=== PATIENT | female | born 1935 | race Caucasian/White ===

== ENCOUNTER → 2017-06-03 | Outpatient (CLI) | payer MEDICARE, OTHER, SELFPAY | PROVIDERS: Family Provider Family Medicine; PCP Family Medicine; Visit Provider Family Medicine | DX: R53.1 Weakness (principal); E03.9 Hypothyroidism, unspecified; I10 Essential (primary) hypertension; E78.5 Hyperlipidemia, unspecified | CPT/HCPCS: 36415; 80053; 80061; 83036; 84443; 85025 ==

== ENCOUNTER → 2017-07-07 | Day surgery (SDC) | payer MEDICARE, OTHER, SELFPAY | END | disposition home or self-care (01) | PROVIDERS: Family Provider Family Medicine; PCP Family Medicine; Visit Provider Ophthalmology | DX: H25.12 Age-related nuclear cataract, left eye (principal) | CPT/HCPCS: 66984; J2250; J3010; V2787 ==

== ENCOUNTER → 2017-12-29 15:36 | Outpatient (CLI) | payer MEDICARE, OTHER, SELFPAY ==
--- NOTE | 2017-12-29 15:40 | DI.RAD.S_ITS ---
PROCEDURE: XR CHEST 2V INDICATIONS: short of breath TECHNIQUE: 2 views of the chest were acquired. COMPARISON: [facility], CHEST 2 VIEW, 12/02/2013, 14:13. [facility], CHEST 2 VIEW, 04/12/2010, 15:00. [facility], CHEST 2 VIEW, 08/24/2007, 10:03. FINDINGS: Surgical changes and devices: Right breast region surgical clips stable over time. Lungs and pleura: No pleural effusions or pneumothorax. Lungs are clear. Mediastinum: Mediastinal contours are normal. Heart size is normal. Bones and chest wall: No suspicious bony abnormalities. Soft tissues appear unremarkable. IMPRESSION: No exchange engineer time, surgical clips suggest prior breast carcinoma surgery on the right. Source of shortness of breath is not seen. Dictated by: Oswaldo Cedeño M.D. on 12/29/2017 at 16:27 Approved by: Oswaldo Cedeño M.D. on 12/29/2017 at 16:27
[2017-12-29 17:21] LABS: Hematocrit 46.5 % (36-46); Hemoglobin 15.5 g/dL (12.0-16.0); Mean Corpuscular HGB Conc 33.4 % (30-36); Mean Corpuscular Hemoglobin 31.8 PG (26-34); Mean Corpuscular Volume 95.3 fL (80-100); Platelet Count 324 X10^3/uL (150-400); Red Blood Cell Count 4.88 X10^6/uL (4.0-5.2); Red Cell Distribution Width 12.7 % (11.6-14.8); White Blood Cell Count 7.8 X10^3/uL (4.5-11.0)
[2017-12-29 17:42] LABS: Alanine Aminotransferase 70 IU/L (9-52); Albumin 4.6 g/dL (3.5-5.0); Albumin Globulin Ratio 1.4 (1.0-2.8); Alkaline Phosphatase 103 U/L (38-126); Aspartate Aminotransferase 56 IU/L (14-36); BUN Creatinine Ratio 18.3 (6-22); Bilirubin Total 0.3 mg/dL (0.2-1.3); Blood Urea Nitrogen 11 mg/dL (7-17); Calcium 9.9 mg/dL (8.4-10.2); Carbon Dioxide 33 mmol/L (22-32); Chloride 101 mmol/L (98-107); Estimated Glomerular Filt Rate > 60.0 mL/min (>60); Globulin 3.3 g/dL (1.7-4.1); Glucose 90 mg/dL (80-110); HEMOLYSIS < 15 (0-50); Potassium 4.5 mmol/L (3.4-5.1); Sodium 142 mmol/L (137-145); Total Protein 7.9 g/dL (6.3-8.2)
[2017-12-29 17:51] LABS: B Type Natriuretic Peptide 70.3 (<100)
== END ==
PROVIDERS: Family Provider Family Medicine; PCP Family Medicine; Visit Provider Family Medicine
DX: R06.02 Shortness of breath (principal)
CPT/HCPCS: 36415; 71046; 80053; 83880; 85027

== ENCOUNTER → 2018-01-07 14:02 | Outpatient (CLI) | payer MEDICARE, OTHER, SELFPAY ==
--- NOTE | 2018-01-08 16:07 | PM.PFT.1 ---
Pulmonary Function Test Referral & Results Date Patient Seen: 01/07/18 Requesting provider: Brian Ludwig Indication: Shortness of breath Results: The spirometry demonstrates an FVC of 1.91 L which is 134% of predicted. The FEV1 was measured at 1.02 L which is 100% of predicted. The FEV1/FVC ratio was 53 which is 73% of predicted. Following the administration of bronchodilator there was a 10% improvement in FEV1 and a 39% improvement in FEF 25-75%. Lung volumes show an SVC of 2.03 L which is 120% of predicted. The diffusing capacity was measured at 19.87 which is 160% of predicted. The maximum voluntary ventilation was reduced Interpretation: This study demonstrates normal spirometry and normal diffusing capacity. This is essentially normal pulmonary function
== END ==
PROVIDERS: Family Provider Registered Nurse; PCP Family Medicine; Visit Provider Family Medicine
DX: R06.02 Shortness of breath (principal)
CPT/HCPCS: 94010; 94060; 94726; 94729

== ENCOUNTER 2018-03-29 11:36 | Emergency (ER) | payer MEDICARE, OTHER, SELFPAY ==
[2018-03-29 11:40] VITALS: BP 160/80; PULSE 92; RESP 20; TEMP 36.4; O2SAT 97; BMI 23.0
[2018-03-29 12:00] VITALS: BP 113/79; PULSE 96; RESP 22; O2SAT 99
--- NOTE | 2018-03-29 12:19 | DI.RAD.S_ITS ---
PROCEDURE: XR CHEST 2V INDICATIONS: cough TECHNIQUE: 2 views of the chest were acquired. COMPARISON: [facility], CHEST 2 VIEW, 04/12/2010, 15:00. [facility], CHEST 2 VIEW, 12/02/2013, 14:13. [facility], XR CHEST 2V, 12/29/2017, 15:27. FINDINGS: Surgical changes and devices: Right axillary/chest wall clips can be seen. Lungs and pleura: No pleural effusions or pneumothorax. Lungs are clear, yet hyperexpanded. Mediastinum: Mediastinal contours are normal. Heart size is normal. Atherosclerotic calcification of the aortic arch is noted. Bones and chest wall: No suspicious bony abnormalities. Age-appropriate bony degenerative changes are seen. Soft tissues appear unremarkable. IMPRESSION: No focal infiltrates are seen. Postoperative and degenerative changes are seen. Dictated by: Glen Singleton M.D. on 03/29/2018 at 11:32 Approved by: Glen Singleton M.D. on 03/29/2018 at 11:34
--- NOTE | 2018-03-29 12:31 | ED.URI ---
HPI - URI/Sore Throat <Estrella Carmona PA-C - Last Filed: 03/29/18 21:36> General Chief Complaint: Upper Respiratory Symptoms Stated Complaint: sent over from walk in clinic Time Seen by Provider: 03/29/18 12:31 Source: patient Mode of arrival: ambulatory Limitations: no limitations History of Present Illness HPI Narrative: This 83-year-old female with chronic dyspnea comes in due to 3 week history of productive cough, which is atypical for her, along with increased dyspnea and some wheeze. She describes this as an air hunger sensation rather than bety dyspnea. She states that her chest feels congested all of the time. There is no change in her feeling of dyspnea whether she is at rest or exercising. She states that she has mostly been trying to ignore this and go about her usual activities. She states that sputum is more clear to white in color but thick. She denies any fever, chills, sweats. She denies any chest pain. She denies any sinus pain or drainage but notes that she has been using sinus irrigation. She does not have earache or sore throat. She denies any new pain or swelling in her legs. She states that she was exposed to sick grandchildren around [place] time right before her symptoms started. She denies any nausea vomiting or any other new symptoms with this. She states that cough has been worse in the last week, but she is not at all worse today, came in due to concern of her daughters she says. She does not have a smoking history. She denies any personal or family history of blood clots. Related Data Home Medications Medication Instructions Recorded Confirmed Adrenal 2 ea PO BID 03/29/18 03/29/18 Basic Neut 1 ea PO TID 03/29/18 03/29/18 Bioveg 2 - 4 ea PO DAILY 03/29/18 03/29/18 Bone Up 2 ea PO TID 03/29/18 03/29/18 CoQ-10 1 cap PO TID 03/29/18 03/29/18 Crucera 2 ea PO TID 03/29/18 03/29/18 Folic Acid, Hydroxy 1 dose IM Q4D 03/29/18 03/29/18 Meriva 2 ea PO TID 03/29/18 03/29/18 [place] Swirl 10 ml PO DAILY 03/29/18 03/29/18 Thyrosol 2 ea PO DAILY 03/29/18 03/29/18 Vitamin B 1 ml PO DAILY 03/29/18 03/29/18 Vitamin D 4 drp PO DAILY 03/29/18 03/29/18 thyroid (pork) [[place] Thyroid] 60 mg PO DAILY 03/29/18 03/29/18 Previous Rx's Medication Instructions Recorded Test Strips - Freestyle 0 item QDAY #100 06/10/17 DISABLED PARKING PERMIT #1 each 09/09/17 albuterol sulfate HFA 90 1 puff INHALATION Q4-6H PRN #8.5 12/15/17 mcg/actuation aerosol inhaler gram amoxicillin-pot clavulanate 1 tab PO Q12H #14 tab 03/29/18 Allergies Allergy/AdvReac Type Severity Reaction Status Date / Time Iodine and Iodide Containing Allergy Severe DIFFICULTY Verified 03/29/18 10:07 Produc BREATHING/INCREASED BP Review of Systems <Estrella Carmona PA-C - Last Filed: 03/29/18 21:36> Review of Systems ROS Unobtainable: All systems reviewed & are unremarkable except as noted in HPI and below Exam <Estrella Carmona PA-C - Last Filed: 03/29/18 21:36> Narrative Exam Narrative: GENERAL APPEARANCE: Patient sitting comfortably, in no distress. HEAD: No sinus TTP. EYES: PERRL, EOMI. EARS: Normal auditory canals, TMS intact, mostly occluded by cerumen ORAL CAVITY: Normal oropharynx. THROAT: Normal aside from some PND noted NECK/THYROID: Neck supple, full range of motion, no cervical lymphadenopathy. LUNGS: Good AE, soft end expiratory rhonchi, no crackles, no cough on exam HEART: RRR without murmur, nl S1, S2, no S3 or S4. ABDOMEN: Soft, nontender, nondistended EXTREMITIES: No edema, no calf tenderness NEUROLOGIC: Patient is alert, oriented, with normal speech and coordination. Good historian Initial Vital Signs Initial Vital Signs: Vital Signs Temperature 97.5 F L 03/29/18 11:40 Pulse Rate 92 H 03/29/18 11:40 Respiratory Rate 20 03/29/18 11:40 Blood Pressure 160/80 H 03/29/18 11:40 Pulse Oximetry 97 03/29/18 11:40 <Teresa Rodriguez DO - Last Filed: 03/30/18 07:51> Initial Vital Signs Initial Vital Signs: Vital Signs Temperature 97.5 F L 03/29/18 11:40 Pulse Rate 92 H 03/29/18 11:40 Respiratory Rate 20 03/29/18 11:40 Blood Pressure 160/80 H 03/29/18 11:40 Pulse Oximetry 97 03/29/18 11:40 Course <Estrella Carmona PA-C - Last Filed: 03/29/18 21:36> Additional Information: Patient felt markedly improved following nebulizer treatment. She was given a spacer for use with her inhaler at home. Given the longevity of her symptoms, several weeks, and worsening over the last week antibiotic trial is reasonable. Given a prescription for Augmentin and she agrees to follow up with her PCP in the next week. We did phone and they will call her with an appointment. She agreed to return if any acutely worsening symptoms in the interim Orders Ordered: Discontinued Medications Albuterol (Ventolin) 2.5 mg INH NOW ONE Stop: 03/29/18 12:44 Last Admin: 03/29/18 12:59 Dose: 2.5 mg Vital Signs - 8 hr 03/29/18 14:01 Pulse Rate 97 H Respiratory Rate 20 Blood Pressure 133/111 H Pulse Oximetry 99 <Teresa Rodriguez DO - Last Filed: 03/30/18 07:51> Orders Ordered: Discontinued Medications Albuterol (Ventolin) 2.5 mg INH NOW ONE Stop: 03/29/18 12:44 Last Admin: 03/29/18 12:59 Dose: 2.5 mg Vital Signs - 8 hr 03/29/18 14:01 Pulse Rate 97 H Respiratory Rate 20 Blood Pressure 133/111 H Pulse Oximetry 99 MDM - URI/Sore Throat <Estrella Carmona PA-C - Last Filed: 03/29/18 21:36> Imaging Data Chest x-ray: Radiologist's impression: View Report History [address] [address] XRay Report Signed Patient: Scarlet Wisdom I MR#: [id number] : 1935 Acct:[id number] Age/Sex: 83 / F Date of Service: 03/29/18 Loc: ED Accession Number: [id number] Procedure: XR chest 2V Ordering Provider: Teresa Rodriguez D.O. PROCEDURE: XR CHEST 2V INDICATIONS: cough TECHNIQUE: 2 views of the chest were acquired. COMPARISON: [facility], , CHEST 2 VIEW, 04/12/2010, 15:00. [facility], , CHEST 2 VIEW, 12/02/2013, 14:13. [facility], , XR CHEST 2V, 12/29/2017, 15:27. FINDINGS: Surgical changes and devices: Right axillary/chest wall clips can be seen. Lungs and pleura: No pleural effusions or pneumothorax. Lungs are clear, yet hyperexpanded. Mediastinum: Mediastinal contours are normal. Heart size is normal. Atherosclerotic calcification of the aortic arch is noted. Bones and chest wall: No suspicious bony abnormalities. Age-appropriate bony degenerative changes are seen. Soft tissues appear unremarkable. IMPRESSION: No focal infiltrates are seen. Postoperative and degenerative changes are seen. Dictated by: Glen Singleton M.D. on 03/29/2018 at 11:32 Approved by: Glen Singleton M.D. on 03/29/2018 at 11:34 ECG Data Attestation: I personally reviewed and interpreted this ECG as follows: (Sinus rhythm, rate 90, normal axis) Prior ECG tracings: not available for review Discharge Plan Departure Patient Disposition: Home Clinical Impression: Bronchitis, Reactive airway disease Discharge Date/Time: 03/29/18 14:03 Interventions: ED Discharge Assessment Last Done: 03/29/18 14:01 Instructions: Acute Bronchitis, DI for Reactive Airway Disease-Adult Activity Restrictions/Additional Instructions: Please return as we talked about if you have acutely worsening symptoms, or new symptoms such as chest pain or high fever. Otherwise, as we discussed it is reasonable to treat you for bronchitis. Most of the time this is a viral infection, however since you have had it for several weeks and your cough and phlegm production are getting worse, we will try an antibiotic. I have sent a prescription into [facility] for you. Please use your inhaler with the spacer we gave you as often as you needed for cough, tight chest, or wheeze, especially since the breathing treatment that we gave you here today was helpful. I would recommend you use it at least a couple of times daily with what you are describing to me as the chronic air hunger sensation. We have phoned Dr. Ludwig's office and they will call you to arrange a follow up appointment within a week. Please call there if you have not heard from them by tomorrow as it is important that you follow up to arrang further testing if you are not better Prescriptions: New amoxicillin-pot clavulanate 875-125 mg tablet 1 tab PO Q12H Qty: 14 RF: 0 No Action Test Strips - Freestyle QDAY Qty: 100 RF: 11 DISABLED PARKING PERMIT .MEDSUPPLY Qty: 1 RF: 0 albuterol sulfate [ProAir HFA] 90 mcg/actuation HFA aerosol inhaler 1 puff INHALATION Q4-6H PRN (Reason: shortness of breath or wheezing) Qty: 8.5 RF: 2 Adrenal 2 ea PO BID RF: 0 thyroid (pork) [[place] Thyroid] 30 mg tablet 60 mg PO DAILY RF: 0 Basic Neut 1 ea PO TID RF: 0 Bioveg 2 - 4 ea PO DAILY RF: 0 Bone Up 2 ea PO TID RF: 0 CoQ-10 1 cap PO TID RF: 0 Crucera 2 ea PO TID RF: 0 Folic Acid, Hydroxy 1 dose IM Q4D RF: 0 Meriva 2 ea PO TID RF: 0 [place] Swirl 10 ml PO DAILY RF: 0 Thyrosol 2 ea PO DAILY RF: 0 Vitamin B drops 1 ml PO DAILY RF: 0 Vitamin D drops 4 drp PO DAILY RF: 0 Referrals: Brian Ludwig MD [Primary Care Provider] - <Teresa Rodriguez DO - Last Filed: 03/30/18 07:51> Cosign ED Attending Cosignature Attestation: I was immediately available in the department for consultation. This documentation has been reviewed and I agree with assessment and plan. Supervised by Teresa Rodriguez DO
--- NOTE | 2018-03-29 12:52 | ED_ITS ---
HPI - URI/Sore Throat <Estrella Carmona PA-C - Last Filed: 03/29/18 21:36> General Chief Complaint: Upper Respiratory Symptoms Stated Complaint: sent over from walk in clinic Time Seen by Provider: 03/29/18 12:31 Source: patient Mode of arrival: ambulatory Limitations: no limitations History of Present Illness HPI Narrative: This 83-year-old female with chronic dyspnea comes in due to 3 week history of productive cough, which is atypical for her, along with increased dyspnea and some wheeze. She describes this as an air hunger sensation rather than bety dyspnea. She states that her chest feels congested all of the time. There is no change in her feeling of dyspnea whether she is at rest or exercising. She states that she has mostly been trying to ignore this and go about her usual activities. She states that sputum is more clear to white in color but thick. She denies any fever, chills, sweats. She denies any chest pain. She denies any sinus pain or drainage but notes that she has been using sinus irrigation. She does not have earache or sore throat. She denies any new pain or swelling in her legs. She states that she was exposed to sick grandchildren around [place] time right before her symptoms started. She denies any nausea vomiting or any other new symptoms with this. She states that cough has been worse in the last week, but she is not at all worse today, came in due to concern of her daughters she says. She does not have a smoking history. She denies any personal or family history of blood clots. Related Data Home Medications Medication Instructions Recorded Confirmed Adrenal 2 ea PO BID 03/29/18 03/29/18 Basic Neut 1 ea PO TID 03/29/18 03/29/18 Bioveg 2 - 4 ea PO DAILY 03/29/18 03/29/18 Bone Up 2 ea PO TID 03/29/18 03/29/18 CoQ-10 1 cap PO TID 03/29/18 03/29/18 Crucera 2 ea PO TID 03/29/18 03/29/18 Folic Acid, Hydroxy 1 dose IM Q4D 03/29/18 03/29/18 Meriva 2 ea PO TID 03/29/18 03/29/18 [place] Swirl 10 ml PO DAILY 03/29/18 03/29/18 Thyrosol 2 ea PO DAILY 03/29/18 03/29/18 Vitamin B 1 ml PO DAILY 03/29/18 03/29/18 Vitamin D 4 drp PO DAILY 03/29/18 03/29/18 thyroid (pork) [[place] Thyroid] 60 mg PO DAILY 03/29/18 03/29/18 Previous Rx's Medication Instructions Recorded Test Strips - Freestyle 0 item QDAY #100 06/10/17 DISABLED PARKING PERMIT #1 each 09/09/17 albuterol sulfate HFA 90 1 puff INHALATION Q4-6H PRN #8.5 12/15/17 mcg/actuation aerosol inhaler gram amoxicillin-pot clavulanate 1 tab PO Q12H #14 tab 03/29/18 Allergies Allergy/AdvReac Type Severity Reaction Status Date / Time Iodine and Iodide Containing Allergy Severe DIFFICULTY Verified 03/29/18 10:07 Produc BREATHING/INCREASED BP Review of Systems <Estrella Carmona PA-C - Last Filed: 03/29/18 21:36> Review of Systems ROS Unobtainable: All systems reviewed & are unremarkable except as noted in HPI and below Exam <Estrella Carmona PA-C - Last Filed: 03/29/18 21:36> Narrative Exam Narrative: GENERAL APPEARANCE: Patient sitting comfortably, in no distress. HEAD: No sinus TTP. EYES: PERRL, EOMI. EARS: Normal auditory canals, TMS intact, mostly occluded by cerumen ORAL CAVITY: Normal oropharynx. THROAT: Normal aside from some PND noted NECK/THYROID: Neck supple, full range of motion, no cervical lymphadenopathy. LUNGS: Good AE, soft end expiratory rhonchi, no crackles, no cough on exam HEART: RRR without murmur, nl S1, S2, no S3 or S4. ABDOMEN: Soft, nontender, nondistended EXTREMITIES: No edema, no calf tenderness NEUROLOGIC: Patient is alert, oriented, with normal speech and coordination. Good historian Initial Vital Signs Initial Vital Signs: Vital Signs Temperature 97.5 F L 03/29/18 11:40 Pulse Rate 92 H 03/29/18 11:40 Respiratory Rate 20 03/29/18 11:40 Blood Pressure 160/80 H 03/29/18 11:40 Pulse Oximetry 97 03/29/18 11:40 <Teresa Rodriguez DO - Last Filed: 03/30/18 07:51> Initial Vital Signs Initial Vital Signs: Vital Signs Temperature 97.5 F L 03/29/18 11:40 Pulse Rate 92 H 03/29/18 11:40 Respiratory Rate 20 03/29/18 11:40 Blood Pressure 160/80 H 03/29/18 11:40 Pulse Oximetry 97 03/29/18 11:40 Course <Estrella Carmona PA-C - Last Filed: 03/29/18 21:36> Additional Information: Patient felt markedly improved following nebulizer treatment. She was given a spacer for use with her inhaler at home. Given the longevity of her symptoms, several weeks, and worsening over the last week antibiotic trial is reasonable. Given a prescription for Augmentin and she agrees to follow up with her PCP in the next week. We did phone and they will call her with an appointment. She agreed to return if any acutely worsening symptoms in the interim Orders Ordered: Discontinued Medications Albuterol (Ventolin) 2.5 mg INH NOW ONE Stop: 03/29/18 12:44 Last Admin: 03/29/18 12:59 Dose: 2.5 mg Vital Signs - 8 hr 03/29/18 14:01 Pulse Rate 97 H Respiratory Rate 20 Blood Pressure 133/111 H Pulse Oximetry 99 <Teresa Rodriguez DO - Last Filed: 03/30/18 07:51> Orders Ordered: Discontinued Medications Albuterol (Ventolin) 2.5 mg INH NOW ONE Stop: 03/29/18 12:44 Last Admin: 03/29/18 12:59 Dose: 2.5 mg Vital Signs - 8 hr 03/29/18 14:01 Pulse Rate 97 H Respiratory Rate 20 Blood Pressure 133/111 H Pulse Oximetry 99 MDM - URI/Sore Throat <Estrella Carmona PA-C - Last Filed: 03/29/18 21:36> Imaging Data Chest x-ray: Radiologist's impression: View Report History [address] [address] XRay Report Signed Patient: Scarlet Wisdom I MR#: [id number] : 1935 Acct:[id number] Age/Sex: 83 / F Date of Service: 03/29/18 Loc: ED Accession Number: [id number] Procedure: XR chest 2V Ordering Provider: Teresa Rodriguez D.O. PROCEDURE: XR CHEST 2V INDICATIONS: cough TECHNIQUE: 2 views of the chest were acquired. COMPARISON: [facility], , CHEST 2 VIEW, 04/12/2010, 15:00. [facility], , CHEST 2 VIEW, 12/02/2013, 14:13. [facility], , XR CHEST 2V, 12/29/2017, 15:27. FINDINGS: Surgical changes and devices: Right axillary/chest wall clips can be seen. Lungs and pleura: No pleural effusions or pneumothorax. Lungs are clear, yet hyperexpanded. Mediastinum: Mediastinal contours are normal. Heart size is normal. Atherosclerotic calcification of the aortic arch is noted. Bones and chest wall: No suspicious bony abnormalities. Age-appropriate bony degenerative changes are seen. Soft tissues appear unremarkable. IMPRESSION: No focal infiltrates are seen. Postoperative and degenerative changes are seen. Dictated by: Glen Singleton M.D. on 03/29/2018 at 11:32 Approved by: Glen Singleton M.D. on 03/29/2018 at 11:34 ECG Data Attestation: I personally reviewed and interpreted this ECG as follows: (Sinus rhythm, rate 90, normal axis) Prior ECG tracings: not available for review Discharge Plan Departure Patient Disposition: Home Clinical Impression: Bronchitis, Reactive airway disease Discharge Date/Time: 03/29/18 14:03 Interventions: ED Discharge Assessment Last Done: 03/29/18 14:01 Instructions: Acute Bronchitis, DI for Reactive Airway Disease-Adult Activity Restrictions/Additional Instructions: Please return as we talked about if you have acutely worsening symptoms, or new symptoms such as chest pain or high fever. Otherwise, as we discussed it is reasonable to treat you for bronchitis. Most of the time this is a viral infection, however since you have had it for several weeks and your cough and phlegm production are getting worse, we will try an antibiotic. I have sent a prescription into [facility] for you. Please use your inhaler with the spacer we gave you as often as you needed for cough, tight chest, or wheeze, especially since the breathing treatment that we gave you here today was helpful. I would recommend you use it at least a couple of times daily with what you are describing to me as the chronic air hunger sensation. We have phoned Dr. Ludwig's office and they will call you to arrange a follow up appointment within a week. Please call there if you have not heard from them by tomorrow as it is important that you follow up to arrang further testing if you are not better Prescriptions: New amoxicillin-pot clavulanate 875-125 mg tablet 1 tab PO Q12H Qty: 14 RF: 0 No Action Test Strips - Freestyle QDAY Qty: 100 RF: 11 DISABLED PARKING PERMIT .MEDSUPPLY Qty: 1 RF: 0 albuterol sulfate [ProAir HFA] 90 mcg/actuation HFA aerosol inhaler 1 puff INHALATION Q4-6H PRN (Reason: shortness of breath or wheezing) Qty: 8.5 RF: 2 Adrenal 2 ea PO BID RF: 0 thyroid (pork) [[place] Thyroid] 30 mg tablet 60 mg PO DAILY RF: 0 Basic Neut 1 ea PO TID RF: 0 Bioveg 2 - 4 ea PO DAILY RF: 0 Bone Up 2 ea PO TID RF: 0 CoQ-10 1 cap PO TID RF: 0 Crucera 2 ea PO TID RF: 0 Folic Acid, Hydroxy 1 dose IM Q4D RF: 0 Meriva 2 ea PO TID RF: 0 [place] Swirl 10 ml PO DAILY RF: 0 Thyrosol 2 ea PO DAILY RF: 0 Vitamin B drops 1 ml PO DAILY RF: 0 Vitamin D drops 4 drp PO DAILY RF: 0 Referrals: Brian Ludwig MD [Primary Care Provider] - <Teresa Rodriguez DO - Last Filed: 03/30/18 07:51> Cosign ED Attending Cosignature Attestation: I was immediately available in the department for consultation. This documentation has been reviewed and I agree with assessment and plan. Supervised by Teresa Rodriguez DO
[2018-03-29] MEDS: ALBUTEROL 2.5 MG/3 ML NEB (ADULT) INH (12:59)
[2018-03-29 13:00] VITALS: BP 109/83; PULSE 103; PULSE 91; RESP 16; RESP 22; O2SAT 94; O2SAT 96
[2018-03-29 14:01] VITALS: BP 133/111; PULSE 97; RESP 20; O2SAT 99
== END 2018-03-29 14:03 | disposition home or self-care (01) ==
PROVIDERS: Emergency Provider Internal Medicine; Family Provider Registered Nurse; PCP Family Medicine
DX: J40 Bronchitis, not specified as acute or chronic (principal); R06.00 Dyspnea, unspecified
CPT/HCPCS: 71046; 93005; 93010; 94640; 99282; 99284; J7613

== ENCOUNTER → 2018-12-31 09:06 | Outpatient (CLI) | payer MEDICARE, OTHER, SELFPAY ==
[2018-12-31 10:17] LABS: Add Manual Diff / Slide Review NO; Basophils Absolute Auto 0 /uL (0-100); Basophils Percent Auto 0.7 % (0-2); Eosinophils Absolute Auto 100 /uL (0-450); Eosinophils Percent Auto 2.3 % (2-4); Hematocrit 43.6 % (36-46); Hemoglobin 14.9 g/dL (12.0-16.0); Lymphocytes Absolute Auto 2000 /uL (1100-4500); Lymphocytes Percent Auto 42.9 % (25-40); Mean Corpuscular HGB Conc 34.1 % (30-36); Mean Corpuscular Hemoglobin 31.1 PG (26-34); Monocytes Absolute Auto 600 /uL (0-900); Neutrophils Absolute Auto 2000 /uL (1500-7000); Neutrophils Percent Auto 42.1 % (50-75); Platelet Count 254 X10^3/uL (150-400); Red Blood Cell Count 4.79 X10^6/uL (4.0-5.2); Red Cell Distribution Width 12.9 % (11.6-14.8); White Blood Cell Count 4.7 X10^3/uL (4.5-11.0)
[2018-12-31 10:40] LABS: Alanine Aminotransferase 37 IU/L (9-52); Albumin 3.9 g/dL (3.5-5.0); Albumin Globulin Ratio 1.3 (1.0-2.8); Alkaline Phosphatase 102 U/L (38-126); Aspartate Aminotransferase 41 IU/L (14-36); BUN Creatinine Ratio 27.5 (6-22); Bilirubin Total 0.6 mg/dL (0.2-1.3); Blood Urea Nitrogen 11 mg/dL (7-17); Calcium 9.7 mg/dL (8.4-10.2); Carbon Dioxide 31 mmol/L (22-32); Chloride 103 mmol/L (98-107); Estimated Glomerular Filt Rate > 60.0 mL/min (>60); Globulin 2.9 g/dL (1.7-4.1); Glucose 107 mg/dL (80-110); HEMOLYSIS < 15 (0-50); Potassium 3.8 mmol/L (3.4-5.1); Sodium 141 mmol/L (137-145); Total Protein 6.8 g/dL (6.3-8.2)
[2018-12-31 11:12] LABS: TSH w/ Reflex to FT4 < 0.02 uIU/mL (0.47-4.68)
[2018-12-31 11:41] LABS: Free T4, Direct Thyroxine 1.83 ng/dL (0.78-2.19)
== END ==
PROVIDERS: Family Provider Registered Nurse; PCP Family Medicine; Visit Provider Family Medicine
DX: E03.9 Hypothyroidism, unspecified (principal); J45.40 Moderate persistent asthma, uncomplicated; R73.01 Impaired fasting glucose
CPT/HCPCS: 36415; 80053; 84439; 84443; 85025

== ENCOUNTER → 2019-04-04 12:17 | Outpatient (CLI) | payer MEDICARE, OTHER, SELFPAY ==
[2019-04-04 13:37] LABS: Alanine Aminotransferase 28 IU/L (<35); Alkaline Phosphatase 116 U/L (38-126); Aspartate Aminotransferase 39 IU/L (14-36); Bilirubin Total 0.8 mg/dL (0.2-1.3); Blood Urea Nitrogen 12 mg/dL (7-17); Calcium 9.7 mg/dL (8.4-10.2); Carbon Dioxide 30 mmol/L (22-32); Chloride 100 mmol/L (98-107); Estimated Glomerular Filt Rate > 60.0 mL/min (>60); Glucose 87 mg/dL (80-110); Sodium 137 mmol/L (137-145)
[2019-04-04 13:38] LABS: Albumin 4.4 g/dL (3.5-5.0); Albumin Globulin Ratio 1.3 (1.0-2.8); Globulin 3.4 g/dL (1.7-4.1); HEMOLYSIS < 15 (0-50); Total Protein 7.8 g/dL (6.3-8.2)
[2019-04-04 14:30] LABS: Thyroid Stimulating Hormone 0.86 uIU/mL (0.47-4.68)
[2019-04-04 16:05] LABS: Vitamin D 25 Hydroxy (D3) 81.1 ng/mL (30.0-100.0)
== END ==
PROVIDERS: PCP Family Medicine; Visit Provider Registered Nurse
DX: E03.9 Hypothyroidism, unspecified (principal); E78.00 Pure hypercholesterolemia, unspecified; E63.9 Nutritional deficiency, unspecified; R53.82 Chronic fatigue, unspecified
CPT/HCPCS: 36415; 80053; 82306; 84443

== ENCOUNTER → 2019-04-07 13:35 | Outpatient (CLI) | payer MEDICARE, OTHER, SELFPAY ==
--- NOTE | 2019-04-07 13:39 | DI.MG.S_ITS ---
BILATERAL DIGITAL DIAGNOSTIC MAMMOGRAM 3D/2D POST LUMPECTOMY: 04/07/2019 CLINICAL: Rightt breast cancer. Comparison is made to exams dated: 01/16/2015 ultrasound, 07/17/2014 mammogram, 07/04/2014 mammogram, 06/20/2013 mammogram, and 06/10/2012 mammogram - [facility]. There are scattered fibroglandular elements in both breasts. Prior right lumpectomy and lymph node dissection. There is a enlarging 1.3 cm round mass with an indistinct margin in the right breast at 10 o'clock posterior depth. This likely correlates as palpated and most likely represents the recent biopsy site demonstrating ductal carcinoma. Additionally, there is a 0.5 cm round mass in the right breast at 10 o'clock middle depth. This is more prominent. There also is a new 0.9 cm irregular equal density mass in the right breast axillary tail seen on the mediolateral oblique view only. This is located 1.7 cm from the larger biopsied mass. No other significant calcifications, or other findings are seen in either breast. IMPRESSION: INCOMPLETE: NEEDS ADDITIONAL IMAGING EVALUATION 1) The enlarging 1.3 cm round mass in the right breast at 10 o'clock posterior depth is most consistent with biopsy proven ductal carcinoma. An ultrasound is recommended. 2) The 0.5 cm round mass in the right breast at 10 o'clock middle depth is more prominent and is indeterminate. An ultrasound is recommended. 3) The new 0.9 cm irregular equal density mass in the right breast axillary tail seen on the mediolateral oblique view only is indeterminate. An ultrasound is recommended. This exam was interpreted at Station ID: [id number]. NOTE: For mammograms, a report in lay terms will be sent to the patient. Approximately 15% of breast malignancies will not be visualized mammographically. In the management of a palpable breast mass, a negative mammogram must not discourage biopsy of a clinically suspicious lesion. Electronically Signed By: Caleb Villanueva M.D. [facility] [place]/:04/07/2019 18:30:50 copy to: Tico Cage [facility] BI-RADS Category 0: Incomplete [id number]
--- NOTE | 2019-04-07 13:39 | DI.US.S_ITS ---
LIMITED ULTRASOUND OF RIGHT BREAST AND AXILLA: 04/07/2019 CLINICAL: Patient returns for additional imaging over a suspected mass in the right breast. Comparison is made to exams dated: 04/07/2019 mammogram, 01/16/2015 ultrasound, 07/17/2014 ultrasound, 07/17/2014 mammogram, 07/04/2014 mammogram, and 06/20/2013 mammogram - [facility]. Color flow and real-time ultrasound of the right breast 9 o'clock, and axilla regions were performed. Mason scale images of the real-time examination were reviewed. There is a 2 cm x 1.3 cm x 1.7 cm irregular mass with an indistinct margin in the right breast at 9 o'clock posterior depth 5 cm from the nipple and just deep to the skin. This irregular mass is hypoechoic with posterior acoustic shadowing. This likely correlates as palpated, with mammography findings, and likely represents the outside in office biopsy proven ductal carcinoma. There is associated skin retraction and overlying biopsy wound. Color flow imaging demonstrates that there is vascularity present. Additionally, there is a 0.7 cm x 0.4 cm x 0.8 cm irregular mass with an indistinct margin in the right breast at 9 o'clock middle depth 6 cm from the nipple. This irregular mass is hypoechoic with posterior acoustic shadowing. Color flow imaging demonstrates that there is vascularity present. In addition, there is a 1 cm x 0.5 cm x 1.1 cm irregular mass with an indistinct margin in the right breast at 9 o'clock posterior depth. This irregular mass is hypoechoic. Color flow imaging demonstrates that there is vascularity present. In addition, there is a 0.5 cm x 0.6 cm x 0.7 cm irregular mass with an indistinct margin in the right breast at 9 o'clock posterior depth 4 cm from the nipple. This irregular mass is hypoechoic with posterior acoustic shadowing. Color flow imaging demonstrates that there is vascularity present. There is also a 1.9 cm x 0.7 cm x 1.5 cm irregular mass with an indistinct margin in the right breast at 11 o'clock posterior depth/ axillary tail. This irregular mass is hypoechoic with posterior acoustic shadowing. This correlates with mammography findings. Color flow imaging demonstrates that there is vascularity present. No additional right axillary lymph nodes are identified. IMPRESSION: HIGHLY SUGGESTIVE OF MALIGNANCY 1) A 2 cm irregular mass in the right breast at 9 o'clock 5 cm from the nipple is most consistent with the outside in office biopsied mass demonstrating ductal carcinoma. 2) Three satellite masses adjacent to the biopsied lesion measuring 1.9 cm, 1.1 cm, and 0.8 cm, respectively in the right breast at 9 o'clock middle depth are suspicious of malignancy. -These are approximately 1 cm from the largest mass. 3) A 1.9 cm irregular mass in the right breast axillary tail is suspicious of malignancy. -This is located approximately 1.7 cm from the largest mass on mammogram. A surgical/oncologic consult is recommended. The axillary tail lesion or satellite masses could be biopsied if clinically necessary. MRI of the breast may also be helpful for defining the extent of disease. This exam was interpreted at Station ID: [id number]. Electronically Signed By: Caleb Villanueva M.D. slc/:04/07/2019 18:12:24 copy to: Tico Cage letter sent: Biopsy Required Ultrasound BI-RADS: 5 Highly suggestive of malignancy
--- NOTE | 2019-04-07 14:03 | DI.CT.S_ITS ---
PROCEDURE: CT CHEST ABDOMEN W CON INDICATIONS: RIGHT Breast Cancer TECHNIQUE: After the administration of intravenous contrast, 5 mm thick sections acquired from the lung apices to the iliac crests. 5 mm coronal and sagittal reformats were performed, with additional 7 mm coronal MIP reformats through the lungs. For radiation dose reduction, the following was used: automated exposure control, adjustment of mA and/or kV according to patient size. COMPARISON: [facility], CT, CT CROCKER, 08/25/2011, 11:42. [facility], MG, MM DIAGNOSTIC MAMMO BI, 04/07/2019, 14:47. [facility], US, US BREAST RT LIMITED, 04/07/2019, 15:34. FINDINGS: Image quality: Excellent. CHEST: Lungs and pleura: No acute consolidation. Biapical scarring. 2 mm left midlung pleural-based nodule image 99/3. This is probably not significantly changed since 08/25/11. 6 mm subpleural nodule seen in the left lung on image 207/3 however was present on the prior study from 08/25/11. No pleural effusions or pneumothorax. Central and peripheral airways appear patent and normal in caliber. Mediastinum: Heart size is normal. No pericardial effusion. No mediastinal or hilar adenopathy by size criteria. Thoracic aorta and central pulmonary arteries are normal in size. Esophagus is normal in caliber. No hiatal hernia. Chest wall: No axillary or supraclavicular adenopathy by size criteria. Thyroid gland unremarkable. Surgical clips seen within the right breast and axilla. Nodular soft tissue attenuation measuring 1.3 cm involving the right breast and skin surface image 34 series 2. Recommend correlation to same day mammogram and ultrasound ABDOMEN: Solid organs: Hepatic steatosis. Gallbladder contracted otherwise unremarkable. Biliary system is non dilated. Pancreas enhances normally. Spleen is normal in size and enhancement. No adrenal nodules. Kidneys demonstrate normal size and enhancement, without hydronephrosis. Simple appearing left renal cysts. Peritoneum and bowel: Bowel loops demonstrate normal wall thickness and caliber. No free fluid or air. Nodes and vessels: No retroperitoneal or mesenteric adenopathy by size criteria. Aorta and inferior vena cava are normal in size. Bones: No suspicious bony lesions. No vertebral body compression fractures. Miscellaneous: No ventral hernias. IMPRESSION: Post surgical changes involving the right breast and axilla. Soft tissue attenuation nodular focus involving the right breast as detailed above, recommend correlation to same day mammogram and ultrasound. Please see report. Elsewhere, no evidence of distant metastatic disease Dictated by: Huber Covarrubias M.D. on 04/07/2019 at 17:17 Approved by: Huber Covarrubias M.D. on 04/07/2019 at 17:33
== END ==
PROVIDERS: Family Provider Registered Nurse; PCP Family Medicine; Visit Provider Family Medicine
DX: R92.8 Other abnormal and inconclusive findings on diagnostic imaging of breast (principal); C50.411 Malignant neoplasm of upper-outer quadrant of right female breast; N63.31 Unspecified lump in axillary tail of the right breast; K76.0 Fatty (change of) liver, not elsewhere classified; N28.1 Cyst of kidney, acquired; R91.8 Other nonspecific abnormal finding of lung field
CPT/HCPCS: 71260; 74160; 76642; 77066; G0279; Q9967

== ENCOUNTER → 2019-04-27 10:22 | Outpatient (CLI) | payer MEDICARE, OTHER, SELFPAY ==
--- NOTE | 2019-04-27 10:24 | DI.NM.S_ITS ---
PROCEDURE: NM BONE SCAN WHOLE BODY RADIOPHARMACEUTICAL: 20 mCi Tc-99m MDP IV. INDICATIONS: Metastatic workup for breast cancer TECHNIQUE: Delayed whole-body scintigrams were obtained approximately 3-4 hours after intravenous injection of radiotracer. Anterior and posterior views were acquired from vertex to feet. Additional left and right oblique views of the thoracic cage were obtained. COMPARISON: [facility], BREAST UNILATERAL LIMITED, 07/17/2014, 10:42. [facility], BREAST UNILATERAL LIMITED, 01/16/2015, 9:53. [facility], US BREAST RT LIMITED, 04/07/2019, 15:34. [facility], CT, CT CHEST ABDOMEN W CON, 04/07/2019, 14:10. FINDINGS: No lesions are identified in skull, sternum, clavicles, scapulae, ribs, bony pelvis, and visualized shafts of the long bones. There is low level increased uptake in cervical, thoracic and lumbar spine, correlating with degenerative disc and facet disease seen on the comparison CT; early metastasis to spine could be obscured by degenerative changes. There are foci of increased periarticular activity involving shoulders, sternoclavicular joints, elbows, wrists, hands, right hip, SI joints and knees, compatible with degenerative/arthritic changes. There is a left hip prosthesis. There is a focal soft tissue uptake in the right anterolateral chest wall/right breast. IMPRESSION: 1. No definitive scintigraphic findings to suggest osseous metastasis. 2. A focal soft tissue uptake is seen in the right anterior lateral chest wall/right breast correlating with a subcutaneous soft tissue nodule seen on CT, suspicious for recurrent tumor/metastasis. 3. Uptake in thoracic and lumbar spine is most likely degenerative. If there is clinical suspicion for metastatic disease to spine, MRI with and without contrast may be helpful. Dictated by: Erika Steven M.D. on 04/27/2019 at 15:35 Transcribed by: MARILIN on 04/27/2019 at 15:40 Approved by: Erika Steven M.D. on 04/27/2019 at 18:32
== END ==
PROVIDERS: Family Provider Registered Nurse; PCP Family Medicine; Referring Provider Family Medicine; Visit Provider Surgery
DX: C50.911 Malignant neoplasm of unspecified site of right female breast (principal); Z17.0 Estrogen receptor positive status [ER+]
CPT/HCPCS: 78306; A9503

== ENCOUNTER 2019-05-04 14:43 | Emergency (ER) | payer MEDICARE, OTHER, SELFPAY ==
[2019-05-04 14:46] VITALS: BP 175/83; PULSE 75; RESP 18; TEMP 36.4; O2SAT 97
[2019-05-04] MEDS: methylPREDNISolone 125 MG/2 ML VIAL IV (15:10)
[2019-05-04] MEDS: FAMOTIDINE 20 MG/50 ML PIGGYBACK 200 MG IV (15:12)
[2019-05-04] MEDS: EPINEPHrine 1 MG/ML 0.3 MG IM (15:12)
[2019-05-04] MEDS: diphenhydrAMINE 50 MG/ML VIAL 25 MG IV (15:12)
--- NOTE | 2019-05-04 15:27 | ED.ALLEREA ---
HPI - Allergic Reaction <JAYA AnneP - Last Filed: 05/04/19 19:29> General Chief complaint: Allergic Reaction Stated complaint: Allergic reaction Time Seen by Provider: 05/04/19 14:50 Source: patient Mode of arrival: Ambulatory Limitations: no limitations History of Present Illness HPI narrative: This is a 84-year-old female, nonsmoker, who presents to ED with EMS with chief complain of sudden onset of tongue swelling right side worse than left (took a photo at home) which started at 1:45 p.m. at home. Patient denies any new exposure to medications, food, or currently taking the CHAU inhibitor. Patient noticed right after she put small amounts of sunflower and pumpkin seeds into her mouth she was unable to swallow and felt tongue swelling. Patient reports she had no problem with eating nuts in the past. Patient denies short of breath, chest pain, feeling faint. Patient states her symptoms feel like it is improving but not completely resolved. Patient denies difficulty managing oral secretion. Related Data Home Medications Medication Instructions Recorded Confirmed Adrenal 2 ea PO BID 03/29/18 05/05/19 Basic Neut 1 ea PO TID 03/29/18 05/05/19 Bioveg 2 - 4 ea PO DAILY 03/29/18 05/05/19 Bone Up 2 ea PO TID 03/29/18 05/05/19 CoQ-10 1 cap PO TID 03/29/18 05/05/19 Meriva 2 ea PO TID 03/29/18 05/05/19 Thyrosol 2 ea PO DAILY 03/29/18 05/05/19 Vitamin D 4 drp PO DAILY 03/29/18 05/05/19 Vitamin B-12/Folic Acid shots See Rx Instructions .ROUTE .COMPLEX 11/29/18 05/05/19 Armor Thyroid 30 mg See Rx Instructions .ROUTE .COMPLEX 01/03/19 05/05/19 Previous Rx's Medication Instructions Recorded DISABLED PARKING PERMIT #1 each 09/09/17 albuterol sulfate 90 mcg/actuation 1 puff INHALATION Q4-6H PRN #8.5 12/15/17 aerosol inhaler gram fluticasone propionate 220 2 puff INHALATION BID #36 gram 03/29/19 mcg/actuation HFA aerosol inhaler epinephrine [EpiPen 2-Ric] 0.3 mg IM Q15M PRN #1 each 05/04/19 prednisone 50 mg PO DAILY 5 Days tab 05/04/19 ranitidine HCl [Zantac] 150 mg PO DAILY #10 tab 05/04/19 Allergies Allergy/AdvReac Type Severity Reaction Status Date / Time Iodine and Iodide Containing Allergy Severe DIFFICULTY Verified 05/05/19 08:39 Produc BREATHING/INCREASED BP Review of Systems <LIN Anne - Last Filed: 05/04/19 19:29> Review of Systems Narrative: General: Denies fever, chills, fatigue, malaise, sweats. HEENT: See HPI Respiratory: Denies dyspnea, cough, wheezing, hemoptysis, sputum. Cardiovascular: Denies chest pain, palpitations, orthopnea, edema. Gastrointestinal: Denies nausea, vomiting, abdominal pain, diarrhea, constipation, melena. : Denies dysuria, frequency, incontinence, hematuria, urinary retention. Musculoskeletal: Denies weakness, joint pain or bony pain. Skin: Denies rash, skin lesions, or other. Neurologic: Denies weakness, headache, numbness, change in speech, confusion, seizures, incoordination. Psychiatric: No concerning psychosocial issues. 12-point review of systems is negative except for those stated above. Patient History <LIN Anne - Last Filed: 05/04/19 19:29> Medical History Acquired hypothyroidism Ductal carcinoma (Acute) Impaired fasting glucose (09/14/14) Moderate persistent asthma (Acute) Surgical History History of hip replacement (Acute) Hx of lumpectomy (Acute) Family History Father Diabetes mellitus Cancer Other Family history non-contributory Social History household members: none Smoking Status: Never smoker alcohol intake: never substance use type: does not use Smoking Status: Never smoker Substance Use Type: does not use Exam <LIN Anne - Last Filed: 05/04/19 19:29> Narrative Exam Narrative: GEN: Alert, oriented x 3, well appearing and nourished, and in no acute distress. Head: Normal cephalic, atraumatic. No scalp or temporal tenderness, palpable mass or rash. EYES: Pupils are equal, round, and reactive to light and accommodation. Extraocular muscles are intact bilaterally. There is no subconjunctival hemorrhage, exudate and sclera non-icteric. ENT: Bilateral auditory canals and tympanic membranes clear. Hearing grossly intact. Nose without bleeding, purulent discharge or deviation. Facial sinuses nontender to palpate. Mucous membrane moist, no mucosal lesion. Thickened tongue without erythema. Uvula in midline, airway patent. Neck: Trachea in midline. No JVD, non-tender without lymphadenopathy. No masses or thyroid megaly. Supple, non-tender and no meningeal signs. CARDIAC: Normal regular rate and rhythm without murmurs, gallops, or rubs. No chest wall tenderness. No peripheral edema, cyanosis or pallor. Capillary refill is less than 2 seconds. RESPIRATORY: Lungs are clear to auscultate bilaterally. No cough, wheezes, rales, or rhonchi. No stridor, respiratory distress, increase work of breathing, or accessary muscle used. ABD: Abdomen soft, nontender and non-distended. No guarding or rebound tenderness to palpate. Bowel sounds are normal in all 4 quadrants. There is no palpable masses or organomegaly. EXT: Full painless ROM of all extremities with no loss of sensation, strength, effusion or edema. SKIN: Warm, dry, normal color for patient. No erythema, lesions or rash over visible areas. BACK: Nontender without deformity or crepitance. No flank tenderness. NEUROLOGICAL: Alert and oriented to place, time and person. Sensation and motor function intact bilaterally. No facial droops, dysphasia. PSYCHIATRIC: Good judgement and reason, without hallucinations, abnormal affect or abnormal behaviors during the examination. Initial Vital Signs Initial Vital Signs: Vital Signs Temperature 97.6 F 05/04/19 14:46 Pulse Rate 75 05/04/19 14:46 Respiratory Rate 18 05/04/19 14:46 Blood Pressure 175/83 H 05/04/19 14:46 Pulse Oximetry 97 05/04/19 14:46 <Jarett Nicole, DO - Last Filed: 05/05/19 08:54> Initial Vital Signs Initial Vital Signs: Vital Signs Temperature 97.6 F 05/04/19 14:46 Pulse Rate 75 05/04/19 14:46 Respiratory Rate 18 05/04/19 14:46 Blood Pressure 175/83 H 05/04/19 14:46 Pulse Oximetry 97 05/04/19 14:46 Scores <[facility] Ne[facility] morillo - Last Filed: 05/04/19 19:29> GCS [place] coma scale eye opening: Spontaneous Andrez coma scale verbal response: Orientated Andrez coma scale motor response: Obey commands Andrez coma scale total score: 15 Course <[facility] mor[facility] - Last Filed: 05/04/19 19:29> Orders Ordered: Discontinued Medications Diphenhydramine HCl (Benadryl) 25 mg IV NOW ONE Stop: 05/04/19 14:58 Last Admin: 05/04/19 15:12 Dose: 25 mg Documented by: ROJAS Epinephrine HCl (Adrenalin) 0.3 mg IM NOW ONE Stop: 05/04/19 14:58 Last Admin: 05/04/19 15:12 Dose: 0.3 mg Documented by: ROJAS Famotidine (Pepcid) 20 mg in 50 mls @ 200 mls/hr IV NOW ONE Stop: 05/04/19 15:11 Last Infusion: 05/04/19 15:30 Dose: 0 mls/hr Documented by: Admin: 05/04/19 15:12 Dose: 200 mls/hr Documented by: ROJAS Methylprednisolone (Solu-Medrol 125 Mg Vial) 125 mg IV NOW ONE Stop: 05/04/19 14:58 Last Admin: 05/04/19 15:10 Dose: 125 mg Documented by: ROJAS Vital Signs Vital signs: Vital Signs - 8 hr 05/04/19 14:46 05/04/19 17:48 05/04/19 18:26 Temperature 97.6 F Pulse Rate 84 76 Pulse Rate [Left] 75 Respiratory Rate 18 19 16 Blood Pressure 141/64 H Blood Pressure [Right Arm] 175/83 H 130/63 Pulse Oximetry 97 98 98 <Jarett Nicole DO - Last Filed: 05/05/19 08:54> Orders Ordered: Discontinued Medications Diphenhydramine HCl (Benadryl) 25 mg IV NOW ONE Stop: 05/04/19 14:58 Last Admin: 05/04/19 15:12 Dose: 25 mg Documented by: ROJAS Epinephrine HCl (Adrenalin) 0.3 mg IM NOW ONE Stop: 05/04/19 14:58 Last Admin: 05/04/19 15:12 Dose: 0.3 mg Documented by: ROJAS Famotidine (Pepcid) 20 mg in 50 mls @ 200 mls/hr IV NOW ONE Stop: 05/04/19 15:11 Last Infusion: 05/04/19 15:30 Dose: 0 mls/hr Documented by: Admin: 05/04/19 15:12 Dose: 200 mls/hr Documented by: ROJAS Methylprednisolone (Solu-Medrol 125 Mg Vial) 125 mg IV NOW ONE Stop: 05/04/19 14:58 Last Admin: 05/04/19 15:10 Dose: 125 mg Documented by: ROJAS Vital Signs Vital signs: Vital Signs - 8 hr 05/04/19 14:46 05/04/19 17:48 05/04/19 18:26 Temperature 97.6 F Pulse Rate 84 76 Pulse Rate [Left] 75 Respiratory Rate 18 19 16 Blood Pressure 141/64 H Blood Pressure [Right Arm] 175/83 H 130/63 Pulse Oximetry 97 98 98 MDM - Allergic Reaction <LIN Anne - Last Filed: 05/04/19 19:29> Differential Diagnosis Differential diagnosis: Likely anaphylaxis, allergic reaction and angioedema Medical Records Attestation: I reviewed the patient's medical records. ECG Data Attestation: I personally reviewed and interpreted this ECG as follows: Interpretation: Sinus rhythm rate at 85. Normal [place] int 131, QRS dur 94, QT/QTc 387/430 No significant changes from previous EKG. No ST elevation or depression. MDM Narrative Medical decision making narrative: Patient presents to ED accompanied with [facility] with a sudden onset of angioedema which started at 0145 immediately after she had taken some flour and pumpkin sees. Patient had taken pictures of herself at this time and was able to see the significant swelling worse on the right side of her tongue. She had not received any allergy medications before coming into ED. patient was able to manage oral secretion without difficulty. Patient denies chest pain, breathing difficulty, or syncopal episode. Patient was actually a bit hypertensive when she arrived in ED with O2 sat of 97% in room air. Patient was medicated with Solu-Medrol 125 mg IV, Benadryl 25 mg IV, Pepcid 20 mg IV, epinephrine 0.3 mg IM. Patient was re-evaluated several times in the course of ED stay. She reports improving her symptoms with swelling of her tongue. Patient continues to show no dyspnea, able to manage oral secretion without difficulty, without stridor and able to tolerate ice chips. Given patient lives in [facility] with questionable allergy reaction, will consult Dr. Ludwig her primary care physician for observation stay. Per Dr. Ludwig if the patient could stay locally, patient could be discharged to home and return for follow-up appointment in the morning at 8:30 a.m. tomorrow for at the clinic. Discuss this option with patient and daughters, patient decided to stay locally at [facility] since her daughters are currenlty residing [facility] and at [facility] in [place]. She advised continue with daily prednisone 50 mg, Zantac p.o. and Benadryl as needed. Patient advised to use IM epinephrine if angioedema recurs and teaching has been provided by nursing staff how to administer medication. Patient to call 911 if her symptoms recurred. Patient verbalized the understanding and in agreement with the treatment plan. Discharge Plan Departure Patient Disposition: Home Clinical Impression: Angio-edema Qualifiers: Encounter type: initial encounter Qualified Code(s): T78.3XXA - Angioneurotic edema, initial encounter Allergic reaction Qualifiers: Encounter type: initial encounter Qualified Code(s): T78.40XA - Allergy, unspecified, initial encounter Discharge Date/Time: 05/04/19 18:26 Instructions: DI for Angioedema, DI for Anaphylaxis Activity Restrictions/Additional Instructions: You have been diagnosed with [angioedema, swelling to her tongue, possibly from reaction to the seeds]. What to do: *Take your medications as directed. You were given IV Solu-Medrol, Benadryl, Pepcid with IM injection of epinephrine while in ED. your symptoms improved after this medication. *Follow up with your primary care provider Dr. Ludwig tomorrow morning at 8:30 a.m. to 9:00 a.m. he is expecting to see you tomorrow morning. Please stay locally over night as we discussed. Please call ambulance if your symptoms recur. The medication epinephrine IM injection, Zantac have been transmitted to [facility]. Please take prednisone daily for next 5 days. 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 You can take every 6 hours as needed 25-50 mg. This medication can cause drowsiness so please take precautions not driving, drinking alcohol, or operating heavy equipments. *Return to ED if you have any new, worsening, or concerning symptoms, such as [chest pain, breathing difficulty, unable to manage oral secretion, recurring swelling to her throat, lips, tongue then call 911. ]. Prescriptions: New prednisone 50 mg tablet 50 mg PO DAILY 5 Days RF: 0 ranitidine HCl [Zantac] 150 mg tablet 150 mg PO DAILY Qty: 10 RF: 0 epinephrine [EpiPen 2-Ric] 0.3 mg/0.3 mL auto-injector 0.3 mg IM Q15M PRN (Reason: anaphylaxis) Qty: 1 RF: 0 No Action Vitamin B-12/Folic Acid shots See Rx Instructions .ROUTE .COMPLEX RF: 0 (DME) DISABLED PARKING PERMIT 0 .MEDSUPPLY Qty: 1 RF: 0 albuterol sulfate [ProAir HFA] 90 mcg/actuation HFA aerosol inhaler 1 puff INHALATION Q4-6H PRN (Reason: shortness of breath or wheezing) Qty: 8.5 RF: 2 Armor Thyroid 30 mg See Rx Instructions .ROUTE .COMPLEX RF: 0 Flovent HFA 220 mcg/actuation HFA aerosol inhaler 2 puff INHALATION BID Qty: 36 RF: 3 Adrenal 2 ea PO BID RF: 0 Basic Neut 1 ea PO TID RF: 0 Bioveg 2 - 4 ea PO DAILY RF: 0 Bone Up 2 ea PO TID RF: 0 CoQ-10 1 cap PO TID RF: 0 Meriva 2 ea PO TID RF: 0 Thyrosol 2 ea PO DAILY RF: 0 Vitamin D drops 4 drp PO DAILY RF: 0 Referrals: Brian Ludwig MD [Primary Care Provider] -
[2019-05-04 17:48] VITALS: BP 130/63; PULSE 84; RESP 19; O2SAT 98
[2019-05-04 18:26] VITALS: BP 141/64; PULSE 76; RESP 16; O2SAT 98
== END 2019-05-04 18:26 | disposition home or self-care (01) ==
PROVIDERS: Emergency Provider Nurse Practitioner Family; Family Provider Registered Nurse; PCP Family Medicine
DX: T78.3XXA Angioneurotic edema, initial encounter (principal); T78.40XA Allergy, unspecified, initial encounter
CPT/HCPCS: 93005; 96365; 96372; 96375; 99284; J0171; J1200; J2930

== ENCOUNTER 2019-05-24 21:03 | Emergency (ER) | payer MEDICARE, OTHER, SELFPAY ==
--- NOTE | 2019-05-24 21:11 | ED_ITS ---
HPI - Allergic Reaction General Chief complaint: Allergic Reaction Stated complaint: difficutly breathing Time Seen by Provider: 05/24/19 21:10 Source: patient and EMS Mode of arrival: EMS Limitations: no limitations History of Present Illness HPI narrative: This is an 84-year-old female who comes to the emergency department with complaint of swelling her throat. Patient states she has had recurrent allergic reactions. She took Benadryl at home today but not her EpiPen. EMS gave her epi as well as additional Benadryl 50 mg. Patient's airway has been continuing to improve. She has a little bit of a muffled voice but is significantly improved per EMS and the patient from what she was in the field. Patient states that she has not any high today but has had them in the past. She denies any tightness or wheezing in her chest. She denies any nausea or vomiting, she denies any diarrhea. She is in process of seeing an calliope player to evaluate the exact source of her reactions but has not found the definitive source. She has had several episodes in the past year. Patient states she has not been intubated. Related Data Home Medications Medication Instructions Recorded Confirmed Adrenal 2 ea PO BID 03/29/18 05/20/19 Basic Neut 1 ea PO TID 03/29/18 05/20/19 Bioveg 2 - 4 ea PO DAILY 03/29/18 05/20/19 Bone Up 2 ea PO TID 03/29/18 05/20/19 CoQ-10 1 cap PO TID 03/29/18 05/20/19 Meriva 2 ea PO TID 03/29/18 05/20/19 Thyrosol 2 ea PO DAILY 03/29/18 05/20/19 Vitamin D 4 drp PO DAILY 03/29/18 05/20/19 Vitamin B-12/Folic Acid shots See Rx Instructions .ROUTE .COMPLEX 11/29/18 05/20/19 Armor Thyroid 30 mg See Rx Instructions .ROUTE .COMPLEX 01/03/19 05/20/19 letrozole 2.5 mg tablet 2.5 mg PO Q3D tab 05/12/19 05/20/19 Previous Rx's Medication Instructions Recorded DISABLED PARKING PERMIT #1 each 09/09/17 albuterol sulfate 90 mcg/actuation 1 puff INHALATION Q4-6H PRN #8.5 12/15/17 aerosol inhaler gram fluticasone propionate 220 2 puff INHALATION BID #36 gram 03/29/19 mcg/actuation HFA aerosol inhaler epinephrine [EpiPen 2-Ric] 0.3 mg IM Q15M PRN #1 each 05/04/19 prednisone 20 mg tablet 20 mg PO DAILY #7 tab 05/20/19 prednisone See Rx Instructions .ROUTE 05/25/19 .COMPLEX #15 each ranitidine HCl [Zantac] 150 mg PO BID #10 tab 05/25/19 Allergies Allergy/AdvReac Type Severity Reaction Status Date / Time Iodine and Iodide Containing Allergy Severe DIFFICULTY Verified 05/24/19 21:17 Produc BREATHING/INCREASED BP Review of Systems Review of Systems ROS Unobtainable: All systems reviewed & are unremarkable except as noted in HPI and below Patient History Medical History Acquired hypothyroidism Ductal carcinoma (Acute) Impaired fasting glucose (09/14/14) Moderate persistent asthma (Acute) Surgical History History of hip replacement (Acute) Hx of lumpectomy (Acute) Social History household members: none Smoking Status: Never smoker alcohol intake: never substance use type: does not use Smoking Status: Never smoker Substance Use Type: does not use Exam Narrative Exam Narrative: GEN: well nourished, well appearing female, alert and oriented x 3, patient appears to be in mild distress. HEENT: Atraumatic, pupils are equal round reactive to light, extraocular movements are intact, nares are clear, TMs are clear with no fluid, there is no conjunctival pallor. Throat is clear without any exudates, erythema, tonsillar enlargement, patient does appear to have some uvular enlargement. No swelling of the tongue, lips or face noted. Patient has mildly muffled voice but is fairly understandable. Patient states she feels like she is continuing to improve. HEART: Regular rate and rhythm without murmur, clicks, rubs. LUNGS:Lungs clear to auscultation, no wheezes, rales, crackles, chest moves symmetrically ABD:bowel sounds normal, soft, non-tender, no guarding, rebound, rigidity, no masses noted, no hepatosplenomegaly MSCL: Non-tender, no muscle atrophy, muscles strength 5/5 upper and lower extremities, full range of motion NEURO:CN 2-12 intact, sensation normal SKIN: No rash, hives or erythema noted. Initial Vital Signs Initial Vital Signs: Vital Signs Temperature 98.4 F 05/24/19 21:17 Pulse Rate 97 H 05/24/19 21:17 Respiratory Rate 22 05/24/19 21:17 Blood Pressure 151/69 H 05/24/19 21:17 Pulse Oximetry 99 05/24/19 21:17 Scores GCS Andrez coma scale eye opening: Spontaneous Andrez coma scale verbal response: Orientated Andrez coma scale motor response: Obey commands Anderz coma scale total score: 15 Course Orders Ordered: Discontinued Medications Epinephrine HCl (Adrenalin) 0.5 mg IM NOW ONE Stop: 05/24/19 21:40 Last Admin: 05/24/19 21:45 Dose: 0.5 mg Documented by: ELLIE Famotidine (Pepcid) 20 mg in 50 mls @ 200 mls/hr IV NOW ONE Stop: 05/24/19 21:24 Last Infusion: 05/24/19 21:45 Dose: 0 mls/hr Documented by: Admin: 05/24/19 21:26 Dose: 200 mls/hr Documented by: ELLIE Sodium Chloride (Normal Saline 0.9%) 1,000 mls @ 1,000 mls/hr IV BOLUS ONE Stop: 05/24/19 22:09 Last Infusion: 05/24/19 22:24 Dose: 0 mls/hr Documented by: Admin: 05/24/19 21:26 Dose: 1,000 mls/hr Documented by: ELLIE Methylprednisolone (Solu-Medrol 125 Mg Vial) 125 mg IV NOW ONE Stop: 05/24/19 21:11 Last Admin: 05/24/19 21:26 Dose: Not Given Documented by: ELLIE Vital Signs Vital signs: Vital Signs - 8 hr 05/24/19 21:17 05/24/19 23:02 05/24/19 23:49 Temperature 98.4 F Pulse Rate 97 H 121 H 114 H Respiratory Rate 22 31 H 18 Blood Pressure 151/69 H Blood Pressure [Right Arm] 140/62 133/58 L Pulse Oximetry 99 94 94 05/25/19 00:33 05/25/19 01:31 05/25/19 03:08 Temperature Pulse Rate 108 H 101 H 97 H Respiratory Rate 18 20 24 Blood Pressure Blood Pressure [Right Arm] 157/70 H 156/82 H 154/79 H Pulse Oximetry 93 93 93 MDM - Allergic Reaction MDM Narrative Medical decision making narrative: Patient received epinephrine in the field and has had improvement of symptoms. She has a little bit of a muffled voice but both her any mass stay is improving. Recheck at 9:35 p.m, patient states she is not worsening but she does not feel like she is continuing to improve. It is difficult to tell things like her speech may be slightly improved. She states it does make her tired to try to breathe. Plan for a repeat dose of epinephrine and will continue to monitor. Recheck @ 1104pm, patient feels significantly better. Plan to continue observation for at least 4 hours. Her voice has also improved significantly. Recheck at 0240, patient symptoms resolved. She feels much better with no rebound symptoms. No voice changes at this time. Patient has been taking prednisone 20mg daily. Plan to increase and taper down. Patient also given rx for zantac. Patient also had epipen at home and states she knows were it is and has not . She has follow up with [facility] in June. Discharge Plan Departure Patient Disposition: Home Clinical Impression: Angio-edema Instructions: DI for Angioedema Activity Restrictions/Additional Instructions: Follow up with your physician in the next 24-48 hours for recheck. Continue steroids until gone. Continue zantac 150mg twice daily x 5 days. Prescription was sent to [facility] Keep your EpiPen with you at all times, if you have recurrent symptoms use her EpiPen. And then call 911. Return if you have any new or recurrent symptoms, increasing swelling in your throat, lips or airway, muffled voice or hoarseness, wheezing, hives, nausea vomiting, diarrhea or other new or concerning symptoms Prescriptions: New ranitidine HCl [Zantac] 150 mg tablet 150 mg PO BID Qty: 10 RF: 0 prednisone 10 mg tablets,dose pack See Rx Instructions .ROUTE .COMPLEX Qty: 15 RF: 0 No Action Vitamin B-12/Folic Acid shots See Rx Instructions .ROUTE .COMPLEX RF: 0 prednisone 20 mg tablet 20 mg PO DAILY Qty: 7 RF: 0 (DME) DISABLED PARKING PERMIT 0 .MEDSUPPLY Qty: 1 RF: 0 albuterol sulfate [ProAir HFA] 90 mcg/actuation HFA aerosol inhaler 1 puff INHALATION Q4-6H PRN (Reason: shortness of breath or wheezing) Qty: 8.5 RF: 2 Armor Thyroid 30 mg See Rx Instructions .ROUTE .COMPLEX RF: 0 Flovent HFA 220 mcg/actuation HFA aerosol inhaler 2 puff INHALATION BID Qty: 36 RF: 3 letrozole 2.5 mg tablet 2.5 mg PO Q3D RF: 0 Adrenal 2 ea PO BID RF: 0 Basic Neut 1 ea PO TID RF: 0 Bioveg 2 - 4 ea PO DAILY RF: 0 Bone Up 2 ea PO TID RF: 0 CoQ-10 1 cap PO TID RF: 0 Meriva 2 ea PO TID RF: 0 Thyrosol 2 ea PO DAILY RF: 0 Vitamin D drops 4 drp PO DAILY RF: 0 epinephrine [EpiPen 2-Ric] 0.3 mg/0.3 mL auto-injector 0.3 mg IM Q15M PRN (Reason: anaphylaxis) Qty: 1 RF: 0 Referrals: Brian Ludwig MD [Primary Care Provider] -
[2019-05-24 21:17] VITALS: BP 151/69; PULSE 97; RESP 22; TEMP 36.9; O2SAT 99; BMI 23.1
[2019-05-24] MEDS: methylPREDNISolone 125 MG/2 ML VIAL (21:26)
[2019-05-24] MEDS: FAMOTIDINE 20 MG/50 ML PIGGYBACK 200 MG IV (21:26)
[2019-05-24] MEDS: SODIUM CHLORIDE 0.9% 1,000 ML 1000 ML IV (21:26)
--- NOTE | 2019-05-24 21:36 | PC.NURSE ---
Pt here recently in the ED for similar sx. Pt having severe throat swelling,difficulty swallowing and muffled voice. Pt managing secretions .
[2019-05-24] MEDS: EPINEPHrine 1 MG/ML 0.5 MG IM (21:45)
[2019-05-24 23:02] VITALS: BP 140/62; PULSE 121; RESP 31; O2SAT 94
[2019-05-24 23:49] VITALS: BP 133/58; PULSE 114; RESP 18; O2SAT 94
[2019-05-25 00:33] VITALS: BP 157/70; PULSE 108; RESP 18; O2SAT 93
[2019-05-25 01:31] VITALS: BP 156/82; PULSE 101; RESP 20; O2SAT 93
[2019-05-25 03:08] VITALS: BP 154/79; PULSE 97; RESP 24; O2SAT 93
== END 2019-05-25 03:37 | disposition home or self-care (01) ==
PROVIDERS: Emergency Provider Emergency Medicine; Family Provider Registered Nurse; PCP Family Medicine
DX: T78.3XXA Angioneurotic edema, initial encounter (principal)
CPT/HCPCS: 96361; 96365; 96372; 99284; J0171; J2930

== ENCOUNTER → 2019-07-04 15:41 | Outpatient (CLI) | payer MEDICARE, OTHER, SELFPAY ==
[2019-07-04 16:04] LABS: Bacteria Urine None Seen; RBC Urine None Seen (0-5/HPF); WBC Urine None Seen (0-5/HPF)
[2019-07-04 17:10] LABS: Appearance Urine UA CLEAR; Bilirubin Urine UA NEGATIVE (NEGATIVE); Color Urine UA YELLOW; Glucose Urine UA NEGATIVE (Negative); Ketones Urine UA NEGATIVE (NEGATIVE); Leukocyte Esterase Urine UA TRACE (NEGATIVE); Nitrite Urine UA NEGATIVE (Negative); Occult Blood Urine UA NEGATIVE (Negative); Protein Urine UA NEGATIVE (Negative); Urobilinogen Urine UA 0.2 E.U./dL (0.2)
[2019-07-04 17:26] LABS: pH Urine UA 6.5 (4.5-8.0)
[2019-07-04 17:28] LABS: Culture Indicated Urine Cult Not Indicated; Urine Comments Microscopic Normal
== END ==
PROVIDERS: Student in an Organized Health Care Education/Training Program; Family Provider Registered Nurse; PCP Family Medicine; Referring Provider Family Medicine; Visit Provider Family Medicine
DX: R30.0 Dysuria (principal)
CPT/HCPCS: 81001

== ENCOUNTER → 2019-10-24 12:26 | Outpatient (CLI) | payer MEDICARE, OTHER, SELFPAY | PROVIDERS: Family Provider Registered Nurse; PCP Family Medicine; Referring Provider Internal Medicine Hematology & Oncology; Visit Provider Internal Medicine Hematology & Oncology | DX: M85.851 Other specified disorders of bone density and structure, right thigh (principal); Z78.0 Asymptomatic menopausal state; E07.9 Disorder of thyroid, unspecified; Z85.3 Personal history of malignant neoplasm of breast; Z82.62 Family history of osteoporosis | CPT/HCPCS: 77080 ==

== ENCOUNTER → 2020-02-21 14:14 | Outpatient (CLI) | payer MEDICARE, OTHER, SELFPAY ==
[2020-02-21 15:40] LABS: COVID19 -Nasal RAPID Negative (Negative)
== END ==
PROVIDERS: Family Provider Registered Nurse; PCP Family Medicine; Visit Provider Family Medicine Sleep Medicine
DX: Z11.59 Encounter for screening for other viral diseases (principal)
CPT/HCPCS: 87635; C9803

== ENCOUNTER → 2020-04-13 10:18 | Outpatient (CLI) | payer MEDICARE, OTHER, SELFPAY ==
[2020-04-13 11:05] LABS: Add Manual Diff / Slide Review NO; Basophils Absolute Auto 100 /uL (0-100); Basophils Percent Auto 0.8 % (0-2); Eosinophils Absolute Auto 100 /uL (0-450); Eosinophils Percent Auto 1.4 % (2-4); Hematocrit 45.3 % (36-46); Hemoglobin 14.9 g/dL (12.0-16.0); Lymphocytes Absolute Auto 2200 /uL (1100-4500); Lymphocytes Percent Auto 34.3 % (25-40); Mean Corpuscular Hemoglobin 30.7 PG (26-34); Monocytes Absolute Auto 600 /uL (0-900); Monocytes Percent Auto 9.1 % (3-14); Neutrophils Absolute Auto 3500 /uL (1500-7000); Neutrophils Percent Auto 54.4 % (50-75); Platelet Count 269 X10^3/uL (150-400); Red Blood Cell Count 4.87 X10^6/uL (4.0-5.2); Red Cell Distribution Width 13.8 % (11.6-14.8); White Blood Cell Count 6.4 X10^3/uL (4.5-11.0)
[2020-04-13 11:16] LABS: Alanine Aminotransferase 29 IU/L (<35); Albumin 4.1 g/dL (3.5-5.0); Albumin Globulin Ratio 1.3 (1.0-2.8); Alkaline Phosphatase 91 U/L (38-126); Aspartate Aminotransferase 39 IU/L (14-36); BUN Creatinine Ratio 27.9 (6-22); Bilirubin Total 0.4 mg/dL (0.2-1.3); Blood Urea Nitrogen 17 mg/dL (7-17); Calcium 9.5 mg/dL (8.4-10.2); Carbon Dioxide 31 mmol/L (22-32); Chloride 103 mmol/L (98-107); Estimated Glomerular Filt Rate > 60.0 mL/min (>60); Globulin 3.2 g/dL (1.7-4.1); Glucose 136 mg/dL (80-110); HEMOLYSIS < 15 (0-50); Potassium 3.9 mmol/L (3.4-5.1); Sodium 138 mmol/L (137-145); Total Protein 7.3 g/dL (6.3-8.2)
[2020-04-13 12:54] LABS: TSH w/ Reflex to FT4 0.57 uIU/mL (0.47-4.68)
== END ==
PROVIDERS: Family Provider Registered Nurse; PCP Family Medicine; Referring Provider Internal Medicine Hematology & Oncology; Visit Provider Internal Medicine Hematology & Oncology
DX: C50.911 Malignant neoplasm of unspecified site of right female breast (principal); E03.9 Hypothyroidism, unspecified
CPT/HCPCS: 36415; 80053; 84443; 85025